=== PATIENT | female | born 1950 | race African-American/Black ===

== ENCOUNTER 2025-01-17 15:34 | Inpatient (IN) | payer BC, OTHER ==
[2025-01-17] VITALS (16 sets, daily range): BP systolic 76–107; BP diastolic 49–67; PULSE 110–137; RESP 22–32; TEMP 36.696–37.1; O2SAT 90–100
[~2025-01-17] VITALS: Ht 185.4 cm; Wt 111.1 kg
[2025-01-17] MEDS: SODIUM CHLORIDE 0.9% 1,000 ML IV ONE ×2 (16:01→17:21)
[2025-01-17] MEDS: NOREPINEPHRINE 8MG/250ML PMX 250 ML IV ONE ×3 (16:04→20:58)
[2025-01-17] MEDS: PIPERACILLIN/TAZO 3.375G/50ML 50 ML IV ONE (16:04)
[2025-01-17 16:28] LABS: BASOPHILS % 0.1 % (0.0-2.0); EOSINOPHILS % 0.1 % (0.0-5.0); HEMATOCRIT. 35.6 % (36.0-48.0); HEMOGLOBIN. 11.4 g/dL (12.0-16.0); LYMPHOCYTES % 11.8 % (20.0-50.0); MEAN PLATELET VOLUME 9.6 fl (7.4-10.4); MONOCYTES % 1.2 % (2.0-8.0); NEUTROPHILS % 86.8 % (40.0-76.0); PLATELET 140 x1000/uL (130-400); RED BLOOD CELL COUNT 3.82 mill/uL (4.2-5.4); RED CELL DISTRIBUTION WIDTH 14.7 % (11.6-14.6)
[2025-01-17] MEDS: PROPOFOL 10MG/ML 100ML 100 ML IV PRN (16:32)
[2025-01-17 16:39] LABS: CREATININE 2.1 mg/dL (0.6-1.0)
[2025-01-17 16:40] LABS: UREA NITROGEN BLOOD 36 mg/dL (9-23)
[2025-01-17 16:41] LABS: ASPARTATE AMINOTRANSFERASE 82 IU/L (<34); BILIRUBIN DIRECT 0.6 mg/dL (<=3.0)
[2025-01-17 16:42] LABS: BILIRUBIN TOTAL 1.1 mg/dL (0.1-1.0); PROTEIN TOTAL 6.5 g/dL (6.0-8.3)
[2025-01-17 16:44] LABS: INR 1.2
[2025-01-17] MEDS: VANCOMYCIN 1G PREMIX 200 ML IV ONE (16:53)
[2025-01-17 17:04] LABS: TROPONIN I HIGH SENSITIVITY 935 ng/L (3.0-34)
[2025-01-17] MEDS ORDERED: FENTANYL 2500MCG/250ML PMX 250 ML IV ONE (18:45)
[2025-01-17 19:00] LABS: BG BASE EXCESS -11.6 mmol/L (-2.0-3.0); BG CARBOXYHEMOGLOBIN 0.3 % (0.5-1.5); BG DEOXYHEMOGLOBIN 0.4 % (0.0-5.0); BG FRACTION INSPIRED OXYGEN 100; BG HCO3 ACT 13.1 mmol/L (21.0-28.0); BG METHEMOGLOBIN 0.3 % (0.5-1.5); BG OXYGEN SATURATION 99.6 % (94.0-98.0); BG OXYHEMOGLOBIN 99.0 % (94.0-98.0); BG PCO2 26.7 mmHg (32.0-45.0); BG PEEP (cmH2O) 8.0 cmH2O; BG PH 7.310 (7.350-7.450); BG PO2 372.8 mmHg (83.0-108.0); BG SAMPLE SITE RIGHT RADIAL; BG TIDAL VOLUME(mL) 450.0 mL; BG TOTAL HEMOGLOBIN 11.3 g/dL (12.0-16.0); BG VENT MODE VENT - AC; BG VENT RATE 26.0 set
[2025-01-17] MEDS: NOREPINEPHRINE 8 MG in DEXT 5% WATER 242 ML IV ONE (19:06)
[2025-01-17] MEDS: FENTANYL CITRATE/PF 2,500 MCG in SODIUM CHLORIDE 0.9% 200 ML IV ONE (19:44)
[2025-01-17] MEDS ORDERED: ACETAMINOPHEN 325MG TABLET PO PRN (20:00)
[2025-01-17] MEDS ORDERED: IPRATROPIUM/ALBUTEROL 0.5-3(2.5)MG/3ML NEB HHN PRN (20:00)
[2025-01-17] MEDS ORDERED: ONDANSETRON HCL 4MG/2ML INJ IV PRN (20:00)
[2025-01-17] MEDS ORDERED: CLONIDINE 0.1MG TABLET PO PRN (20:00)
[2025-01-17] MEDS ORDERED: IOHEXOL-350 100 ML BOTTLE ONE (21:38)
[2025-01-17] MEDS ORDERED: DOCUSATE SODIUM SUGAR FREE 100MG/10ML UDC NG PRN (21:39)
[2025-01-17] MEDS ORDERED: LACTULOSE 20G/30ML UDC PO PRN (21:45)
[2025-01-18] VITALS (113 sets, daily range): BP systolic 66–132; BP diastolic 41–119; PULSE 93–122; RESP 15–34; TEMP 36.8–37.4; O2SAT 88–100
[2025-01-18] MEDS ORDERED: SODIUM CHLORIDE 0.9% 1,000 ML IV SCH (00:30)
[2025-01-18] MEDS: NOREPINEPHRINE 8MG/250ML PMX 250 ML IV PRN (00:46)
[2025-01-18] MEDS: SODIUM CHLORIDE 0.9% (SEPSIS BOLUS) IV ONE (00:58)
[2025-01-18] MEDS: MAGNESIUM 4 G PREMIX 100 ML IV NR (01:14)
[2025-01-18] MEDS: POTASSIUM CHLORIDE IV NR (01:27)
[2025-01-18] MEDS: SODIUM CHLORIDE 0.45% IV NR (01:27)
[2025-01-18 01:28] LABS: CREATINE KINASE MB FRACTION 33.3 ng/mL (0.5-3.6); FOLIC ACID (FOLATE) SERUM 9.59 ng/mL (>5.38); VITAMIN B12 SERUM 289 pg/mL (211-911)
[2025-01-18] MEDS: IPRATROPIUM/ALBUTEROL 0.5-3(2.5)MG/3ML NEB HHN SCH (02:09)
[2025-01-18 02:38] LABS: BG BASE EXCESS -13.2 mmol/L (-2.0-3.0); BG CARBOXYHEMOGLOBIN 0.3 % (0.5-1.5); BG DEOXYHEMOGLOBIN 2.3 % (0.0-5.0); BG FRACTION INSPIRED OXYGEN 50; BG HCO3 ACT 13.5 mmol/L (21.0-28.0); BG METHEMOGLOBIN 0.1 % (0.5-1.5); BG OXYGEN SATURATION 97.7 % (94.0-98.0); BG OXYHEMOGLOBIN 97.3 % (94.0-98.0); BG PCO2 34.0 mmHg (32.0-45.0); BG PEEP (cmH2O) 5.0 cmH2O; BG PH 7.217 (7.350-7.450); BG PO2 110.0 mmHg (83.0-108.0); BG SAMPLE SITE RIGHT RADIAL; BG TIDAL VOLUME(mL) 450.0 mL; BG TOTAL HEMOGLOBIN 10.6 g/dL (12.0-16.0); BG VENT MODE VENT - AC; BG VENT RATE 20.0 set
[2025-01-18 02:49] LABS: TROPONIN I HIGH SENSITIVITY 3745.0 ng/L (3.0-34)
[2025-01-18] MEDS: SODIUM BICARBONATE 8.4% 50MEQ/50ML SYR IV SCH (03:25)
[2025-01-18 05:08] LABS: CREATINE KINASE MB FRACTION 26.5 ng/mL (0.5-3.6)
[2025-01-18 05:11] LABS: TRIGLYCERIDE 352 mg/dL (0-150)
[2025-01-18 05:12] LABS: LDL CHOLESTEROL 8 mg/dL (5-100); T4 FREE 1.23 ng/dL (0.89-1.76); TROPONIN I HIGH SENSITIVITY 3877 ng/L (3.0-34)
[2025-01-18 05:13] LABS: CREATININE 3.0 mg/dL (0.6-1.0); UREA NITROGEN BLOOD 44 mg/dL (9-23)
[2025-01-18] MEDS: PIPERACILLIN/TAZO 3.375G/50ML 50 ML IV SCH (06:06)
[2025-01-18] MEDS ORDERED: PHENYLEPHRINE 50MG/250ML PMX 250 ML IV PRN (08:15)
[2025-01-18] MEDS: TAMSULOSIN HCL 0.4MG SR CAPSULE PO SCH (09:00)
[2025-01-18] MEDS ORDERED: VANCOMYCIN 750MG PREMIX 150 ML IV SCH (09:00)
[2025-01-18 09:14] LABS: BASOPHILS % 0.1 % (0.0-2.0); EOSINOPHILS % 11.0 % (0.0-5.0); HEMATOCRIT. 32.5 % (36.0-48.0); HEMOGLOBIN. 10.6 g/dL (12.0-16.0); LYMPHOCYTES % 8.4 % (20.0-50.0); MEAN PLATELET VOLUME 10.4 fl (7.4-10.4); MONOCYTES % 4.0 % (2.0-8.0); NEUTROPHILS % 76.5 % (40.0-76.0); RED BLOOD CELL COUNT 3.45 mill/uL (4.2-5.4); RED CELL DISTRIBUTION WIDTH 15.4 % (11.6-14.6)
[2025-01-18] MEDS: FAMOTIDINE 20MG/2ML VIAL IV SCH (09:16)
[2025-01-18] MEDS: VANCOMYCIN 1GM/200ML PMX (BAXTER) IV SCH (09:16)
[2025-01-18 09:26] LABS: PLATELET 71 x1000/uL (130-400)
[2025-01-18 10:13] LABS: CLARITY URINE TURBID (CLEAR); COLOR URINE DARK YELLOW (YELLOW); GLUCOSE URINE NEGATIVE (NEGATIVE); KETONES URINE NEGATIVE (NEGATIVE); LEUKOCYTE ESTERASE URINE 3+ (NEGATIVE); NITRITE URINE NEGATIVE (NEGATIVE); OCCULT BLOOD URINE 3+ (NEGATIVE); PH URINE 8.0 (4.5-8.0); PROTEIN URINE 3+ (NEGATIVE); SPECIFIC GRAVITY URINE 1.043 (1.005-1.030); UROBILINOGEN URINE 1.0 E.U./dL (0.2-1.0)
[2025-01-18 10:24] LABS: BACTERIA URINE 4+; WBC URINE TNTC /hpf (0-2); YEAST URINE NONE SEEN
[2025-01-18 10:25] LABS: SQUAMOUS EPITHELIAL CELL URINE RARE /lpf (RARE/1+)
[2025-01-18 10:39] LABS: *AMPHETAMINES SCREEN URINE NEGATIVE (NEGATIVE); *BARBITURATES SCREEN URINE NEGATIVE (NEGATIVE); *BENZODIAZEPINES SCREEN URINE PRESUMPTIVE POSITIVE (NEGATIVE); *COCAINE SCREEN URINE NEGATIVE (NEGATIVE); CANNABINOID URINE SCREEN NEGATIVE (NEGATIVE); ECSTASY MDMA SCREEN URINE NEGATIVE (NEGATIVE); METHADONE URINE SCREEN NEGATIVE (NEGATIVE); OPIATES URINE SCREEN NEGATIVE (NEGATIVE); PHENCYCLIDINE URINE SCREEN NEGATIVE (NEGATIVE)
[2025-01-18] MEDS ORDERED: LIDOCAINE HCL 1% 10 MG/ML 10ML VIAL ONE (10:50)
[2025-01-18] MEDS: ENOXAPARIN 40MG/0.4ML SYR SUBCUT SCH (11:34)
[2025-01-18] MEDS ORDERED: FENTANYL 2500MCG/250ML PMX 250 ML IV PRN (12:00)
[2025-01-18] MEDS: PROPOFOL 10MG/ML 100ML 100 ML IV PRN (12:14)
[2025-01-18] MEDS ORDERED: SODIUM CHLORIDE 0.9% 100 ML IV ONE (13:00)
[2025-01-18] MEDS: SODIUM CHLORIDE 0.9% 1,000 ML IV ONE (13:13)
[2025-01-18] MEDS: NOREPINEPHRINE 32 MG in DEXT 5% WATER 218 ML IV PRN (13:14)
[2025-01-18] MEDS: MIDAZOLAM HCL 100 MG in SODIUM CHLORIDE 0.9% 80 ML IV PRN (15:13)
[2025-01-18] MEDS: SODIUM BICARBONATE 100 MEQ in DEXTROSE 5% WATER 900 ML IV SCH (15:13)
[2025-01-18 17:13] LABS: BG BASE EXCESS -14.2 mmol/L (-2.0-3.0); BG CARBOXYHEMOGLOBIN 0.6 % (0.5-1.5); BG DEOXYHEMOGLOBIN 2.0 % (0.0-5.0); BG FRACTION INSPIRED OXYGEN 40; BG HCO3 ACT 12.0 mmol/L (21.0-28.0); BG METHEMOGLOBIN 0.3 % (0.5-1.5); BG OXYGEN SATURATION 98.0 % (94.0-98.0); BG OXYHEMOGLOBIN 97.1 % (94.0-98.0); BG PCO2 29.4 mmHg (32.0-45.0); BG PEEP (cmH2O) 5.0 cmH2O; BG PH 7.228 (7.350-7.450); BG PO2 123.1 mmHg (83.0-108.0); BG SAMPLE SITE RIGHT RADIAL; BG TIDAL VOLUME(mL) 450.0 mL; BG TOTAL HEMOGLOBIN 12.7 g/dL (12.0-16.0); BG VENT MODE VENT - AC; BG VENT RATE 20.0 set
[2025-01-18] MEDS: SODIUM BICARBONATE 8.4% 50MEQ/50ML SYR IV NR (18:12)
[2025-01-18] MEDS: SODIUM CHLORIDE 0.9% (SEPSIS BOLUS) IV NR (21:03)
[2025-01-19] VITALS (102 sets, daily range): BP systolic 82–137; BP diastolic 55–95; PULSE 88–117; RESP 17–35; TEMP 36.5–37.5; O2SAT 98–100
[2025-01-19] MEDS ORDERED: FENTANYL CITRATE 2,500 MCG in SODIUM CHLORIDE 0.9% 200 ML IV PRN (04:15)
[2025-01-19] MEDS ORDERED: MIDAZOLAM 100MG/100ML PREMIX IV PRN (04:15)
[2025-01-19 06:20] LABS: CREATININE 3.2 mg/dL (0.6-1.0); TRIGLYCERIDE 282 mg/dL (0-150); UREA NITROGEN BLOOD 55 mg/dL (9-23)
[2025-01-19 06:22] LABS: PHOSPHORUS 4.1 mg/dL (2.5-4.9)
[2025-01-19 06:23] LABS: HEMATOCRIT. 31.2 % (36.0-48.0); HEMOGLOBIN. 10.4 g/dL (12.0-16.0); MEAN PLATELET VOLUME 11.1 fl (7.4-10.4); RED BLOOD CELL COUNT 3.44 mill/uL (4.2-5.4); RED CELL DISTRIBUTION WIDTH 15.5 % (11.6-14.6)
[2025-01-19] MEDS ORDERED: ENOXAPARIN 100MG/ML SYR SUBCUT SCH (07:30)
[2025-01-19 08:05] LABS: PLATELET 37 x1000/uL (130-400)
[2025-01-19] MEDS ORDERED: CEFEPIME 2GM IN DEXT 5% 100ML IV SCH (08:15)
[2025-01-19] MEDS ORDERED: ASPIRIN 81MG TABLET PO SCH (09:00)
[2025-01-19] MEDS: ASPIRIN 81MG TABLET NG SCH (09:09)
[2025-01-19] MEDS: CEFEPIME 2GM/100ML 100 ML IV SCH (09:46)
[2025-01-19 09:48] LABS: BG BASE EXCESS -6.2 mmol/L (-2.0-3.0); BG CARBOXYHEMOGLOBIN 0.1 % (0.5-1.5); BG DEOXYHEMOGLOBIN 1.6 % (0.0-5.0); BG FRACTION INSPIRED OXYGEN 35; BG HCO3 ACT 18.5 mmol/L (21.0-28.0); BG METHEMOGLOBIN 0.3 % (0.5-1.5); BG OXYGEN SATURATION 98.4 % (94.0-98.0); BG OXYHEMOGLOBIN 98.0 % (94.0-98.0); BG PCO2 33.9 mmHg (32.0-45.0); BG PEEP (cmH2O) 5.0 cmH2O; BG PH 7.356 (7.350-7.450); BG PO2 118.9 mmHg (83.0-108.0); BG SAMPLE SITE RIGHT RADIAL; BG TIDAL VOLUME(mL) 450.0 mL; BG TOTAL HEMOGLOBIN 10.8 g/dL (12.0-16.0); BG VENT MODE VENT - AC; BG VENT RATE 24.0 set
[2025-01-19 10:24] LABS: TRIGLYCERIDE 299 mg/dL (0-150)
[2025-01-19 10:27] LABS: T4 FREE 1.11 ng/dL (0.89-1.76)
[2025-01-19 10:48] LABS: TROPONIN I HIGH SENSITIVITY 1837 ng/L (3.0-34)
[2025-01-19 10:53] LABS: LDL CHOLESTEROL < 5 mg/dL (5-100)
[2025-01-19] MEDS: VANCOMYCIN 1GM PMX (XELLIA) 200 ML IV SCH (11:05)
[2025-01-19 11:54] LABS: HEPATITIS B CORE AB IGM NEGATIVE (Negative); HEPATITIS C AB NON REACTIVE (Neg) (Negative)
[2025-01-19 11:58] LABS: HEPATITIS A AB IGM NEGATIVE (Negative)
[2025-01-19] MEDS: FUROSEMIDE 40MG/4ML VIAL IVP SCH (12:18)
[2025-01-19 12:39] LABS: BAND% 34.0 % (1.0-6.0); LYMPHOCYTES % MANUAL 7.0 % (20.0-60.0); METAMYELOCYTES % 5.0 % (0-0); NEUTROPHILS % MANUAL 54.0 % (45.0-75.0)
[2025-01-19 12:42] LABS: PLATELET ESTIMATE MARKEDLY DECREASED
[2025-01-19 15:06] LABS: CREATINE KINASE MB FRACTION 8.5 ng/mL (0.5-3.6)
[2025-01-19 23:04] LABS: CREATINE KINASE MB FRACTION 6.1 ng/mL (0.5-3.6)
[2025-01-20] VITALS (110 sets, daily range): BP systolic 80–129; BP diastolic 50–76; PULSE 94–110; RESP 22–29; TEMP 36.2–37.6; O2SAT 95–100
[2025-01-20 04:16] LABS: HEMATOCRIT. 30.3 % (36.0-48.0); HEMOGLOBIN. 10.2 g/dL (12.0-16.0); RED BLOOD CELL COUNT 3.46 mill/uL (4.2-5.4); RED CELL DISTRIBUTION WIDTH 14.9 % (11.6-14.6)
[2025-01-20 04:26] LABS: CREATINE KINASE MB FRACTION 4.0 ng/mL (0.5-3.6)
[2025-01-20 04:27] LABS: CREATININE 3.7 mg/dL (0.6-1.0); UREA NITROGEN BLOOD 64.0 mg/dL (9-23)
[2025-01-20] MEDS: CITRIC ACID/SODIUM CITRATE SOLN 30ML UDC PO SCH (08:53)
[2025-01-20] MEDS: POTASSIUM CHLORIDE 20MEQ/PACKET PO NR (08:54)
[2025-01-20] MEDS: SODIUM CHLORIDE 0.45% 1,000 ML IV SCH (08:54)
[2025-01-20 10:06] LABS: INR 1.1
[2025-01-20 10:09] LABS: BAND% 18.0 % (1.0-6.0); LYMPHOCYTES % MANUAL 14.0 % (20.0-60.0); MONOCYTES % MANUAL 6.0 % (2.0-8.0); NEUTROPHILS % MANUAL 62.0 % (45.0-75.0)
[2025-01-20 10:11] LABS: PLATELET ESTIMATE MARKEDLY DECREASED
[2025-01-20 10:17] LABS: PLATELET 18 x1000/uL (130-400)
[2025-01-21] VITALS (106 sets, daily range): BP systolic 87–121; BP diastolic 47–73; PULSE 89–108; RESP 20–26; TEMP 36.3–37.5; O2SAT 91–100
[2025-01-21 05:32] LABS: HEMATOCRIT. 29.4 % (36.0-48.0); HEMOGLOBIN. 9.9 g/dL (12.0-16.0); MEAN PLATELET VOLUME 9.8 fl (7.4-10.4); RED BLOOD CELL COUNT 3.34 mill/uL (4.2-5.4); RED CELL DISTRIBUTION WIDTH 14.9 % (11.6-14.6)
[2025-01-21 05:42] LABS: CREATININE 4.2 mg/dL (0.6-1.0)
[2025-01-21 05:43] LABS: UREA NITROGEN BLOOD 71 mg/dL (9-23)
[2025-01-21 05:45] LABS: PHOSPHORUS 2.9 mg/dL (2.5-4.9)
[2025-01-21 05:50] LABS: PLATELET 12 x1000/uL (130-400)
[2025-01-21 10:21] LABS: BAND% 14.0 % (1.0-6.0); EOSINOPHILS % MANUAL 1.0 % (0.0-5.0); LYMPHOCYTES % MANUAL 11.0 % (20.0-60.0); MONOCYTES % MANUAL 3.0 % (2.0-8.0); NEUTROPHILS % MANUAL 71.0 % (45.0-75.0); PLATELET ESTIMATE MARKEDLY DECREASED
[2025-01-21 17:39] LABS: INR 1.1
[2025-01-22] VITALS (93 sets, daily range): BP systolic 83–136; BP diastolic 44–74; PULSE 85–107; RESP 19–28; TEMP 36.7–37.1; O2SAT 93–100
[2025-01-22 05:53] LABS: BASOPHILS % 0.1 % (0.0-2.0); EOSINOPHILS % 1.3 % (0.0-5.0); HEMATOCRIT. 26.7 % (36.0-48.0); HEMOGLOBIN. 9.1 g/dL (12.0-16.0); LYMPHOCYTES % 7.4 % (20.0-50.0); MEAN PLATELET VOLUME 10.1 fl (7.4-10.4); MONOCYTES % 5.5 % (2.0-8.0); NEUTROPHILS % 85.7 % (40.0-76.0); RED BLOOD CELL COUNT 3.06 mill/uL (4.2-5.4); RED CELL DISTRIBUTION WIDTH 14.9 % (11.6-14.6)
[2025-01-22 06:13] LABS: CREATININE 4.7 mg/dL (0.6-1.0)
[2025-01-22 06:17] LABS: UREA NITROGEN BLOOD 81.0 mg/dL (9-23)
[2025-01-22 12:17] LABS: PLATELET 13 x1000/uL (130-400)
[2025-01-22 18:47] LABS: BG BASE EXCESS 3.3 mmol/L (-2.0-3.0); BG CARBOXYHEMOGLOBIN 0.8 % (0.5-1.5); BG DEOXYHEMOGLOBIN 2.4 % (0.0-5.0); BG FRACTION INSPIRED OXYGEN 35; BG HCO3 ACT 26.1 mmol/L (21.0-28.0); BG METHEMOGLOBIN 0.3 % (0.5-1.5); BG OXYGEN SATURATION 97.6 % (94.0-98.0); BG OXYHEMOGLOBIN 96.5 % (94.0-98.0); BG PCO2 32.3 mmHg (32.0-45.0); BG PEEP (cmH2O) 5.0 cmH2O; BG PH 7.525 (7.350-7.450); BG PO2 97.0 mmHg (83.0-108.0); BG SAMPLE SITE RIGHT RADIAL; BG TIDAL VOLUME(mL) 500.0 mL; BG TOTAL HEMOGLOBIN 8.8 g/dL (12.0-16.0); BG VENT MODE VENT - SIMV; BG VENT RATE 12.0 set
[2025-01-23] VITALS (93 sets, daily range): BP systolic 99–130; BP diastolic 47–78; PULSE 84–97; RESP 14–26; TEMP 36.7–37.1; O2SAT 88–100
[2025-01-23 06:15] LABS: RED BLOOD CELL COUNT 2.99 mill/uL (4.2-5.4); RED CELL DISTRIBUTION WIDTH 15.0 % (11.6-14.6)
[2025-01-23 06:23] LABS: CREATININE 4.8 mg/dL (0.6-1.0)
[2025-01-23 06:24] LABS: UREA NITROGEN BLOOD 89.0 mg/dL (9-23)
[2025-01-23 07:33] LABS: PLATELET 84 x1000/uL (130-400)
[2025-01-24] VITALS (58 sets, daily range): BP systolic 104–138; BP diastolic 49–74; PULSE 77–95; RESP 13–27; TEMP 36.7–37.2; O2SAT 88–100
[2025-01-24 05:51] LABS: BASOPHILS % 0.3 % (0.0-2.0); EOSINOPHILS % 1.5 % (0.0-5.0); HEMATOCRIT. 25.8 % (36.0-48.0); HEMOGLOBIN. 8.6 g/dL (12.0-16.0); LYMPHOCYTES % 8.4 % (20.0-50.0); MEAN PLATELET VOLUME 11.1 fl (7.4-10.4); MONOCYTES % 4.7 % (2.0-8.0); NEUTROPHILS % 85.1 % (40.0-76.0); RED BLOOD CELL COUNT 2.93 mill/uL (4.2-5.4); RED CELL DISTRIBUTION WIDTH 14.5 % (11.6-14.6)
[2025-01-24 06:09] LABS: CREATININE 4.8 mg/dL (0.6-1.0)
[2025-01-24 06:11] LABS: PHOSPHORUS 5.0 mg/dL (2.5-4.9)
[2025-01-24 06:34] LABS: UREA NITROGEN BLOOD 105 mg/dL (9-23)
[2025-01-24] MEDS ORDERED: CEFEPIME 2GM IN DEXT 5% 100ML IV SCH (09:00)
[2025-01-24] MEDS: CEFEPIME 2GM/100ML 100 ML IV SCH (09:12)
[2025-01-24 10:19] LABS: CLARITY URINE CLOUDY (CLEAR); COLOR URINE BLOODY (YELLOW); GLUCOSE URINE NEGATIVE (NEGATIVE); KETONES URINE NEGATIVE (NEGATIVE); LEUKOCYTE ESTERASE URINE 1+ (NEGATIVE); NITRITE URINE NEGATIVE (NEGATIVE); OCCULT BLOOD URINE 3+ (NEGATIVE); PH URINE 6.0 (4.5-8.0); PROTEIN URINE 2+ (NEGATIVE); SPECIFIC GRAVITY URINE 1.015 (1.005-1.030); UROBILINOGEN URINE 0.2 E.U./dL (0.2-1.0)
[2025-01-24 10:22] LABS: RBC URINE TNTC /hpf (0-2)
[2025-01-24 10:28] LABS: WBC URINE 50-100 /hpf (0-2)
[2025-01-24 10:29] LABS: BACTERIA URINE 2+; SQUAMOUS EPITHELIAL CELL URINE 1+ /lpf (RARE/1+)
[2025-01-24 14:05] LABS: BG BASE EXCESS 2.7 mmol/L (-2.0-3.0); BG CARBOXYHEMOGLOBIN 0.1 % (0.5-1.5); BG DEOXYHEMOGLOBIN 2.3 % (0.0-5.0); BG FRACTION INSPIRED OXYGEN 35; BG HCO3 ACT 26.4 mmol/L (21.0-28.0); BG METHEMOGLOBIN 0.3 % (0.5-1.5); BG OXYGEN SATURATION 97.7 % (94.0-98.0); BG OXYHEMOGLOBIN 97.3 % (94.0-98.0); BG PCO2 37.0 mmHg (32.0-45.0); BG PEEP (cmH2O) 5.0 cmH2O; BG PH 7.471 (7.350-7.450); BG PO2 104.1 mmHg (83.0-108.0); BG SAMPLE SITE RIGHT RADIAL; BG TOTAL HEMOGLOBIN 10.2 g/dL (12.0-16.0); BG VENT MODE MASK - BIPAP
[2025-01-24] MEDS ORDERED: SODIUM CHLORIDE 0.9% 500 ML IV ONE (14:45)
[2025-01-24] MEDS: SODIUM CHLORIDE 0.45% 500 ML IV ONE (16:20)
[2025-01-25 00:50] VITALS: BP 134/64; PULSE 72; RESP 20; TEMP 36.7; O2SAT 100
[2025-01-25 04:00] VITALS: BP 139/61; PULSE 77; RESP 19; TEMP 36.5; O2SAT 99
[2025-01-25 06:30] LABS: BASOPHILS % 0.2 % (0.0-2.0); EOSINOPHILS % 1.3 % (0.0-5.0); HEMATOCRIT. 27.5 % (36.0-48.0); HEMOGLOBIN. 9.1 g/dL (12.0-16.0); LYMPHOCYTES % 8.8 % (20.0-50.0); MEAN PLATELET VOLUME 11.7 fl (7.4-10.4); MONOCYTES % 4.6 % (2.0-8.0); NEUTROPHILS % 85.1 % (40.0-76.0); PLATELET 60 x1000/uL (130-400); RED BLOOD CELL COUNT 3.09 mill/uL (4.2-5.4); RED CELL DISTRIBUTION WIDTH 14.9 % (11.6-14.6)
[2025-01-25 06:37] LABS: CREATININE 4.5 mg/dL (0.6-1.0)
[2025-01-25 06:45] LABS: UREA NITROGEN BLOOD 110.0 mg/dL (9-23)
[2025-01-25 08:00] VITALS: BP 117/44; PULSE 73; RESP 16; TEMP 36.3; O2SAT 99
[2025-01-25] MEDS ORDERED: TRAV2.5D6 (10:36)
[2025-01-25] MEDS ORDERED: DORZ10DR8 EACHEYE ×2 (10:36→14:21)
[2025-01-25] MEDS: DEXTROSE 5% WATER 1,000 ML IV SCH (10:42)
[2025-01-25 12:00] VITALS: BP 134/60; PULSE 80; RESP 16; TEMP 36.4; O2SAT 98
[2025-01-25] MEDS ORDERED: ATEN-42 MT (14:13)
[2025-01-25] MEDS ORDERED: CELE-116 MT (14:14)
[2025-01-25] MEDS ORDERED: ATOR40TA70 MT (14:14)
[2025-01-25] MEDS ORDERED: TRAM50TA3 MT (14:21)
[2025-01-25] MEDS ORDERED: FENO145T25 MT (14:21)
[2025-01-25] MEDS ORDERED: TRAV2.5D EACHEYE (14:21)
[2025-01-25] MEDS ORDERED: MESA1.2T2 PO (14:21)
[2025-01-25] MEDS ORDERED: DIPH-1091 MT (14:21)
[2025-01-25] MEDS ORDERED: POTA10CA93 MT (14:21)
[2025-01-25] MEDS ORDERED: CICL6.6S22 TP (14:21)
[2025-01-25] MEDS ORDERED: FURO40TA5 MT (14:21)
[2025-01-25] MEDS: DORZOLAMIDE 2% OPHTH 10 ML BOTTLE EACHEYE SCH (14:28)
[2025-01-25 16:00] VITALS: BP 140/59; PULSE 79; RESP 16; TEMP 36.4; O2SAT 100
[2025-01-25] MEDS: DEXTROSE 5% WATER 1,000 ML IV ONE (16:00)
[2025-01-25] MEDS: ACETAMINOPHEN 325MG TABLET PO PRN (18:27)
[2025-01-25 20:00] VITALS: BP 137/53; PULSE 75; RESP 19; TEMP 36.7; O2SAT 98
[2025-01-25] MEDS: LATANOPROST 0.005% OPHTH DROPS 2.5ML BOTHEYE SCH (20:57)
[2025-01-26] VITALS: BP 107/46; PULSE 77; RESP 19; TEMP 36.4; O2SAT 99
[2025-01-26] MEDS: TRAMADOL 50MG TABLET PO PRN (01:26)
[2025-01-26 04:00] VITALS: BP 127/51; PULSE 76; RESP 19; TEMP 36.5; O2SAT 99
[2025-01-26 08:00] VITALS: BP 124/55; PULSE 77; RESP 18; RESP 20; TEMP 36.4; O2SAT 99
[2025-01-26 10:21] LABS: BASOPHILS % 0.2 % (0.0-2.0); EOSINOPHILS % 0.8 % (0.0-5.0); HEMATOCRIT. 26.0 % (36.0-48.0); HEMOGLOBIN. 8.5 g/dL (12.0-16.0); LYMPHOCYTES % 7.6 % (20.0-50.0); MEAN PLATELET VOLUME 11.3 fl (7.4-10.4); MONOCYTES % 3.5 % (2.0-8.0); NEUTROPHILS % 87.9 % (40.0-76.0); PLATELET 79 x1000/uL (130-400); RED BLOOD CELL COUNT 2.94 mill/uL (4.2-5.4); RED CELL DISTRIBUTION WIDTH 14.9 % (11.6-14.6)
[2025-01-26 10:54] LABS: CREATININE 3.7 mg/dL (0.6-1.0)
[2025-01-26 10:55] LABS: UREA NITROGEN BLOOD 99.0 mg/dL (9-23)
[2025-01-26 12:00] VITALS: BP 127/57; PULSE 76; RESP 18; TEMP 36.5; O2SAT 97
[2025-01-26 13:15] LABS: PLATELET 40 x1000/uL (130-400)
[2025-01-26 16:00] VITALS: BP 131/57; PULSE 78; RESP 18; TEMP 36.5; O2SAT 97
[2025-01-26 20:00] VITALS: BP 137/60; PULSE 84; RESP 19; TEMP 36.6; O2SAT 100
[2025-01-26] MEDS: DESMOPRESSIN ACETATE 4MCG/ML AMP IV SCH (21:01)
[2025-01-27] VITALS: BP 135/55; PULSE 78; RESP 18; TEMP 36.6; O2SAT 97
[2025-01-27 04:00] VITALS: BP 139/60; PULSE 82; RESP 19; TEMP 36.1; O2SAT 96
[2025-01-27 06:09] LABS: CREATININE 3.4 mg/dL (0.6-1.0); UREA NITROGEN BLOOD 86.0 mg/dL (9-23)
[2025-01-27 06:40] LABS: BASOPHILS % 0.3 % (0.0-2.0); EOSINOPHILS % 1.0 % (0.0-5.0); HEMATOCRIT. 25.7 % (36.0-48.0); HEMOGLOBIN. 8.5 g/dL (12.0-16.0); LYMPHOCYTES % 8.4 % (20.0-50.0); MEAN PLATELET VOLUME 11.2 fl (7.4-10.4); MONOCYTES % 4.2 % (2.0-8.0); NEUTROPHILS % 86.1 % (40.0-76.0); PLATELET 88 x1000/uL (130-400); RED BLOOD CELL COUNT 2.88 mill/uL (4.2-5.4); RED CELL DISTRIBUTION WIDTH 15.0 % (11.6-14.6)
[2025-01-27 08:00] VITALS: BP 135/79; PULSE 72; RESP 17; TEMP 36.4; O2SAT 98
[2025-01-27] MEDS: DEXTROSE 5% WATER 1,000 ML IV ONE (08:39)
[2025-01-27 12:00] VITALS: BP 131/59; PULSE 74; RESP 17; TEMP 36.4; O2SAT 100
[2025-01-27 16:00] VITALS: BP 132/59; PULSE 70; RESP 17; TEMP 36.8; O2SAT 99
[2025-01-27] MEDS: TRAMADOL 50MG TABLET PO PRN (17:13)
[2025-01-27] MEDS ORDERED: NALOXONE HCL 0.4MG/ML VIAL IV PRN (17:15)
[2025-01-27 20:00] VITALS: BP 145/60; PULSE 75; RESP 19; TEMP 36.2; O2SAT 100
[2025-01-28] VITALS: BP 120/55; PULSE 75; RESP 20; TEMP 36.1; O2SAT 99
[2025-01-28 04:00] VITALS: BP 133/59; PULSE 75; RESP 19; TEMP 36.2; O2SAT 100
[2025-01-28 08:00] VITALS: BP 133/57; PULSE 75; PULSE 91; RESP 17; RESP 19; TEMP 36.5; O2SAT 99
[2025-01-28 12:00] VITALS: BP 146/69; PULSE 68; RESP 18; TEMP 36.3; O2SAT 100
[2025-01-28 16:00] VITALS: BP 147/62; PULSE 66; RESP 18; TEMP 36.6; O2SAT 100
[2025-01-28 20:00] VITALS: BP 149/59; PULSE 96; RESP 17; TEMP 36.6; O2SAT 100
[2025-01-29] VITALS (8 sets, daily range): BP systolic 130–157; BP diastolic 55–69; PULSE 53–87; RESP 14–19; TEMP 36.3–36.7; O2SAT 98–100
[2025-01-29 08:29] LABS: BASOPHILS % 0.3 % (0.0-2.0); EOSINOPHILS % 0.8 % (0.0-5.0); HEMATOCRIT. 24.1 % (36.0-48.0); HEMOGLOBIN. 7.8 g/dL (12.0-16.0); LYMPHOCYTES % 9.2 % (20.0-50.0); MEAN PLATELET VOLUME 11.5 fl (7.4-10.4); MONOCYTES % 5.2 % (2.0-8.0); NEUTROPHILS % 84.5 % (40.0-76.0); PLATELET 108 x1000/uL (130-400); RED BLOOD CELL COUNT 2.67 mill/uL (4.2-5.4); RED CELL DISTRIBUTION WIDTH 14.8 % (11.6-14.6)
[2025-01-29 08:51] LABS: UREA NITROGEN BLOOD 64.0 mg/dL (9-23)
[2025-01-29 09:15] LABS: CREATININE 2.1 mg/dL (0.6-1.0)
[2025-01-29] MEDS: LEVOFLOXACIN 500MG TABLET PO SCH (09:28)
[2025-01-29] MEDS: CARVEDILOL 3.125 MG TABLET PO SCH (10:00)
[2025-01-30] VITALS: BP 144/62; PULSE 60; RESP 14; TEMP 36.2; O2SAT 99
[2025-01-30 04:00] VITALS: BP 139/64; PULSE 59; RESP 14; TEMP 36.3; O2SAT 99
[2025-01-30] MEDS ORDERED: FAMOTIDINE 20MG TABLET PO SCH (09:00)
== END 2025-01-30 07:50 | DRG 870 ==
LOC: ER 15:34 → EDBEDREQ 18:40 → EDBEDREQTM 18:40 → ENRESERV 20:53 → MICUSO 22:15 → 6WST 01-25 00:30 → 7EST 01-28 08:45
PROVIDERS: ADMIT Internal Medicine; ATTEND Internal Medicine
PROC: 5A1955Z Respiratory Ventilation, Greater than 96 Consecutive Hours (ICD-10-PCS; principal; 2025-01-17)
PROC: 0BH17EZ Insertion of Endotracheal Airway into Trachea, Via Natural or Artificial Opening (ICD-10-PCS; 2025-01-17)
PROC: 02HV33Z Insertion of Infusion Device into Superior Vena Cava, Percutaneous Approach (ICD-10-PCS; 2025-01-18)
PROC: B548ZZA Ultrasonography of Superior Vena Cava, Guidance (ICD-10-PCS; 2025-01-18)
PROC: 30233R1 Transfusion of Nonautologous Platelets into Peripheral Vein, Percutaneous Approach (ICD-10-PCS; 2025-01-21)
PROC: 4A00X4Z Measurement of Central Nervous Electrical Activity, External Approach (ICD-10-PCS; 2025-01-21)
DX: A41.59 Other Gram-negative sepsis (principal); G93.41 Metabolic encephalopathy; J96.01 Acute respiratory failure with hypoxia; R65.21 Severe sepsis with septic shock; N17.0 Acute kidney failure with tubular necrosis; D65 Disseminated intravascular coagulation [defibrination syndrome]; I21.4 Non-ST elevation (NSTEMI) myocardial infarction; E87.0 Hyperosmolality and hypernatremia; I47.10 Supraventricular tachycardia, unspecified; M62.82 Rhabdomyolysis; E87.20 Acidosis, unspecified; I13.0 Hypertensive heart and chronic kidney disease with heart failure and stage 1 through stage 4 chronic kidney disease, or unspecified chronic kidney disease; I42.9 Cardiomyopathy, unspecified; N13.6 Pyonephrosis; I50.22 Chronic systolic (congestive) heart failure; D64.9 Anemia, unspecified; E27.8 Other specified disorders of adrenal gland; E66.9 Obesity, unspecified; E87.6 Hypokalemia; I27.21 Secondary pulmonary arterial hypertension; R16.0 Hepatomegaly, not elsewhere classified; E87.8 Other disorders of electrolyte and fluid balance, not elsewhere classified; E83.42 Hypomagnesemia; K76.89 Other specified diseases of liver; B96.4 Proteus (mirabilis) (morganii) as the cause of diseases classified elsewhere; E78.00 Pure hypercholesterolemia, unspecified; H40.9 Unspecified glaucoma; N18.9 Chronic kidney disease, unspecified; R31.0 Gross hematuria; Z79.82 Long term (current) use of aspirin; Z79.899 Other long term (current) drug therapy; Z68.32 Body mass index [BMI] 32.0-32.9, adult
CPT/HCPCS: 31500; 31720; 36415; 36573; 36600; 70551; 71045; 71275; 74176; 76770; 80048; 80061; 80076; 80202; 80305; 81003; 82375; 82550; 82553; 82607; 82728; 82746; 82805; 82962; 83036; 83540; 83550; 83605; 83735; 83880; 84100; 84145; 84439; 84443; 84478; 84481; 84484; 85014; 85018; 85025; 85027; 85049; 85362; 85379; 85384; 86022; 86705; 86709; 86850; 86900; 87070; 87077; 87186; 87340; 93005; 93306; 93970; 94002; 94003; 94070; 94640; 94664; 95816; 96365; 96366; 96368; 97163; 97530; 99291; 99292; A4606; C1725; J0692; J1308; J1650; J1938; J2003; J2250; J2543; J2597; J2704; J3010; J3373; J3475; J3480; J3490; J7030; J7050; J7060; J7070; P9034; Q9967